=== PATIENT | male | born 1980 | race Caucasian/White ===

== ENCOUNTER 2024-03-05 11:35 | Inpatient (IN) | payer OTHER ==
[2024-03-05] MEDS ORDERED: MAGNESIUM HYDROX 2400MG/30ML ORAL SUSPENSION 30 ML CUP PO PRN (13:35)
[2024-03-05] MEDS ORDERED: IBUPROFEN 600 MG TABLET (FP) PO PRN (13:35)
[2024-03-05] MEDS ORDERED: guaiFENesin 600 MG TABLET.ER (FP) PO PRN (13:35)
[2024-03-05] MEDS ORDERED: NALOXONE HCL 0.4 MG/ML VIAL IM PRN (13:35)
[2024-03-05] MEDS ORDERED: BENZONATATE 200 MG CAPSULE PO PRN (13:35)
[2024-03-05] MEDS ORDERED: ONDANSETRON *ODT* 4 MG TABLET SL PRN (13:35)
[2024-03-05] MEDS ORDERED: POLYETHYLENE GLYCOL (HEALTHYLAX) 3350 17 GM PACKET PO PRN (13:35)
[2024-03-05] MEDS ORDERED: IBUPROFEN 400 MG TABLET (FP) PO PRN (13:35)
[2024-03-05] MEDS ORDERED: BISMUTH SUBSALICYLATE 524 MG/30 ML PO PRN (13:35)
[2024-03-05] MEDS ORDERED: DICYCLOMINE HCL 10 MG CAPSULE PO PRN (13:35)
[2024-03-05] MEDS ORDERED: MAG HYDROX/AL HYDROX/SIMETH 30 ML UNIT-DOSE CUP PO PRN (13:35)
[2024-03-05] MEDS ORDERED: ACETAMINOPHEN 325 MG TABLET (FP) PO PRN (13:35)
[2024-03-05] MEDS ORDERED: LOPERAMIDE HCL 2 MG CAPSULE PO PRN (13:35)
[2024-03-05] MEDS ORDERED: NALOXONE HCL (KLOXXADO) 8 MG SPRAY NS PRN (13:35)
[2024-03-05] MEDS ORDERED: BENZOCAINE/MENTHOL (CHLORASEPTIC ) LOZENGE MM PRN (13:35)
[2024-03-05] MEDS: NICOTINE 14 MG/24 HOURS TOPICAL PATCH TD SCH (15:12)
[2024-03-05] MEDS: PRENATAL VITAMINS W/ FOLIC ACID TABLET (FP) PO SCH (15:15)
[2024-03-05] MEDS: LORazepam 1 MG TABLET PO PRN (15:17)
[2024-03-05] MEDS: GABAPENTIN 400 MG CAPSULE PO SCH (15:17)
[2024-03-05] MEDS: hydrOXYzine PAMOATE 25 MG CAPSULE (FP) PO PRN (15:19)
[2024-03-05] MEDS: LORazepam 2 MG TABLET PO SCH (17:16)
[2024-03-05] MEDS: THIAMINE 100 MG TABLET PO SCH (22:04)
[2024-03-05] MEDS: MELATONIN 5 MG TABLETS PO SCH (22:05)
[2024-03-06] MEDS: HYDROCORTISONE 1% TOPICAL CREAM 30 GM TUBE TP PRN (06:37)
[2024-03-06] MEDS ORDERED: methaDONE HCL 40 MG DISPERSABLE TABLET PO SCH (10:00)
[2024-03-06 11:14] LABS: HEMATOCRIT 39.7 % (35.4-49); MCH 30.7 pg (25.7-33.7); MCHC 32.8 g/dl (32.0-35.9); MEAN CELL VOLUME 93.7 fl (80-96); MEAN PLT VOLUME 12.8 fl (7.5-11.1); PLATELET COUNT 147 10^3/uL (134-434); RBC 4.23 M/mm3 (4.00-5.60); RDW 16.1 % (11.9-15.9)
[2024-03-06 12:15] LABS: CALCIUM 9.3 mg/dL (8.5-10.1)
[2024-03-06 12:17] LABS: ALBUMIN 3.2 g/dl (3.4-5.0); BLOOD UREA NITROGEN 16.9 mg/dL (7-18)
[2024-03-06 12:20] LABS: CREATININE 0.8 mg/dL (0.55-1.3)
[2024-03-06 12:21] LABS: BILIRUBIN,TOTAL 0.9 mg/dL (0.2-1)
[2024-03-07] MEDS: methaDONE HCL 40 MG DISPERSABLE TABLET PO ONE (05:25)
[2024-03-07] MEDS: LORazepam 1 MG TABLET PO SCH (05:25)
[2024-03-07] MEDS: LACTULOSE 20 GM/30 ML UDC (FOR ORAL USE ONLY) PO SCH (13:27)
[2024-03-08] MEDS ORDERED: LORazepam 0.5 MG TABLET PO PRN
[2024-03-08] MEDS: LORazepam 0.5 MG TABLET PO SCH (05:33)
[2024-03-08] MEDS: METHOCARBAMOL 500 MG TABLET PO PRN (10:08)
[2024-03-09] MEDS: LORazepam 0.5 MG TABLET PO ONE (05:38)
[2024-03-09] MEDS ORDERED: methaDONE HCL 10 MG TABLET PO SCH (06:00)
[2024-03-09 09:18] VITALS: PULSE 60
[2024-03-09 12:55] VITALS: BP 111/60; RESP 14; TEMP 97.6
[2024-03-10] MEDS ORDERED: PATIENT'S OWN MEDICATION (NON-FORMULARY) (Clonazepam [Klonopin -] 0.5 MG Tablet) PO SCH (10:00)
== END 2024-03-09 20:34 | disposition other institution (70) | DRG 773 ==
LOC: YASAS 11:35 → Y3N 13:59
PROVIDERS: ADMIT Allergy & Immunology; ATTEND Surgery
PROC: HZ2ZZZZ Detoxification Services for Substance Abuse Treatment (ICD-10-PCS; principal; 2024-03-05)
DX: F10.230 Alcohol dependence with withdrawal, uncomplicated (principal); F11.20 Opioid dependence, uncomplicated; F14.20 Cocaine dependence, uncomplicated; F15.20 Other stimulant dependence, uncomplicated; F17.210 Nicotine dependence, cigarettes, uncomplicated; F32.A Depression, unspecified; F42.9 Obsessive-compulsive disorder, unspecified; G90.9 Disorder of the autonomic nervous system, unspecified; Z87.820 Personal history of traumatic brain injury
CPT/HCPCS: 36415; 80053; 80307; 82140; 85027; 86780; 93005; 93010

== ENCOUNTER 2024-05-06 13:43 | Inpatient (IN) | payer OTHER ==
[2024-05-06 15:44] VITALS: BMI 23.3
[2024-05-06] MEDS ORDERED: DICYCLOMINE HCL 10 MG CAPSULE PO PRN (16:50)
[2024-05-06] MEDS ORDERED: NALOXONE HCL 0.4 MG/ML VIAL IM PRN (16:50)
[2024-05-06] MEDS ORDERED: LOPERAMIDE HCL 2 MG CAPSULE PO PRN (16:50)
[2024-05-06] MEDS ORDERED: BISMUTH SUBSALICYLATE 524 MG/30 ML PO PRN (16:50)
[2024-05-06] MEDS ORDERED: hydrOXYzine PAMOATE 25 MG CAPSULE (FP) PO PRN (16:50)
[2024-05-06] MEDS ORDERED: BENZONATATE 200 MG CAPSULE PO PRN (16:50)
[2024-05-06] MEDS ORDERED: ONDANSETRON *ODT* 4 MG TABLET SL PRN (16:50)
[2024-05-06] MEDS ORDERED: NALOXONE (NARCAN) HCL 4 MG/0.1 ML SPRAY NS PRN (16:50)
[2024-05-06] MEDS ORDERED: POLYETHYLENE GLYCOL (HEALTHYLAX) 3350 17 GM PACKET PO PRN (16:50)
[2024-05-06] MEDS ORDERED: MAGNESIUM HYDROX 2400MG/30ML ORAL SUSPENSION 30 ML CUP PO PRN (16:50)
[2024-05-06] MEDS ORDERED: IBUPROFEN 400 MG TABLET (FP) PO PRN (16:50)
[2024-05-06] MEDS ORDERED: ACETAMINOPHEN 325 MG TABLET (FP) PO PRN (16:50)
[2024-05-06] MEDS ORDERED: guaiFENesin 600 MG TABLET.ER (FP) PO PRN (16:50)
[2024-05-06] MEDS ORDERED: MAG HYDROX/AL HYDROX/SIMETH 30 ML UNIT-DOSE CUP PO PRN (16:50)
[2024-05-06] MEDS ORDERED: IBUPROFEN 600 MG TABLET (FP) PO PRN (16:50)
[2024-05-06] MEDS: LORazepam 1 MG TABLET PO PRN (18:57)
[2024-05-06] MEDS: MELATONIN 5 MG TABLETS PO SCH (22:23)
[2024-05-06] MEDS: THIAMINE 100 MG TABLET PO SCH (22:23)
[2024-05-06] MEDS: LORazepam 2 MG TABLET PO SCH (22:24)
[2024-05-06] MEDS: HYDROCORTISONE 1% TOPICAL CREAM 30 GM TUBE TP SCH (22:25)
[2024-05-07] MEDS: methaDONE HCL 40 MG DISPERSABLE TABLET PO SCH (07:48)
[2024-05-07] MEDS: PRENATAL VITAMINS W/ FOLIC ACID TABLET (FP) PO SCH (10:03)
[2024-05-07] MEDS ORDERED: CHOLECALCIFEROL (VIT D3) 400 UNIT (10 MCG) TABLET PO PRN (10:23)
[2024-05-07] MEDS ORDERED: ALBUTEROL SO4 HFA INHALER IH PRN (10:23)
[2024-05-07] MEDS: SELENIUM SULFIDE 2.5% LOTION 4 OZ. TP SCH (12:07)
[2024-05-07] MEDS: GABAPENTIN 100 MG CAPSULE PO SCH (13:04)
[2024-05-07] MEDS: METHOCARBAMOL 500 MG TABLET PO PRN (17:29)
[2024-05-07] MEDS: traZODone HCL 100 MG TABLET (FP) PO SCH (22:24)
[2024-05-08] MEDS: LORazepam 1 MG TABLET PO SCH (05:30)
[2024-05-08 11:45] LABS: CHLORIDE 102 mmol/L (98-107); POTASSIUM 4.1 mmol/L (3.5-5.1); SODIUM 139 mmol/L (136-145)
[2024-05-08 11:48] LABS: HEMATOCRIT 37.3 % (35.4-49); HEMOGLOBIN 12.4 GM/dL (11.7-16.9); MCHC 33.3 g/dl (32.0-35.9); MEAN CELL VOLUME 96.4 fl (80-96); MEAN PLT VOLUME 12.4 fl (7.5-11.1); PLATELET COUNT 111 10^3/uL (134-434); RBC 3.87 M/mm3 (4.00-5.60); RDW 15.4 % (11.9-15.9); WHITE BLOOD COUNT 4.7 K/mm3 (4.0-10.0)
[2024-05-08 12:00] LABS: ALBUMIN 3.5 g/dl (3.4-5.0); CALCIUM 8.9 mg/dL (8.5-10.1)
[2024-05-08 12:01] LABS: ANION GAP 8 mmol/L (4-13); BLOOD UREA NITROGEN 12.6 mg/dL (7-18); CO2 29 mmol/L (21-32); GLUCOSE,RANDOM 128 mg/dL (74-106)
[2024-05-08 12:04] LABS: CREATININE 0.8 mg/dL (0.55-1.3)
[2024-05-08 12:05] LABS: SGOT/AST 24 U/L (15-37); SGPT/ALT 28 U/L (13-61)
[2024-05-08 12:06] LABS: BILIRUBIN,TOTAL 0.5 mg/dL (0.2-1); TOT PROT 6.9 g/dl (6.4-8.2)
[2024-05-08 12:07] LABS: ALK PHOS 66 U/L (45-117)
[2024-05-08] MEDS: GABAPENTIN 400 MG CAPSULE PO SCH (23:13)
[2024-05-09] MEDS: LORazepam 0.5 MG TABLET PO SCH (05:57)
[2024-05-09] MEDS: BENZOCAINE/MENTHOL (CHLORASEPTIC ) LOZENGE MM PRN (06:00)
[2024-05-09] MEDS: NICOTINE POLACRILEX 4 MG GUM BUC PRN (11:12)
[2024-05-09] MEDS: LORazepam 0.5 MG TABLET PO PRN (12:38)
[2024-05-09 16:57] VITALS: BP 112/73; PULSE 74; RESP 16; TEMP 97.7
[2024-05-10] MEDS ORDERED: LORazepam 0.5 MG TABLET PO ONE (05:00)
== END 2024-05-09 17:11 | disposition other institution (70) | DRG 773 ==
LOC: YASAS 13:43 → Y3N 17:52
PROVIDERS: ADMIT Allergy & Immunology; ATTEND Surgery
PROC: HZ2ZZZZ Detoxification Services for Substance Abuse Treatment (ICD-10-PCS; principal; 2024-05-06)
DX: F11.23 Opioid dependence with withdrawal (principal); F10.230 Alcohol dependence with withdrawal, uncomplicated; F14.20 Cocaine dependence, uncomplicated; F17.210 Nicotine dependence, cigarettes, uncomplicated; F31.9 Bipolar disorder, unspecified; F41.9 Anxiety disorder, unspecified; J45.909 Unspecified asthma, uncomplicated; B18.2 Chronic viral hepatitis C; Z87.820 Personal history of traumatic brain injury; Z56.0 Unemployment, unspecified; Z59.10 Inadequate housing, unspecified
CPT/HCPCS: 36415; 80053; 80307; 82140; 85027; 86780; 87811; 93005; 93010

== ENCOUNTER 2024-05-09 17:20 | Inpatient (IN) | payer OTHER ==
[2024-05-09] MEDS ORDERED: BENZONATATE 200 MG CAPSULE PO PRN (17:47)
[2024-05-09] MEDS ORDERED: guaiFENesin 600 MG TABLET.ER (FP) PO PRN (17:47)
[2024-05-09] MEDS ORDERED: NICOTINE POLACRILEX 2 MG LOZENGE BC PRN (17:47)
[2024-05-09] MEDS ORDERED: IBUPROFEN 400 MG TABLET (FP) PO PRN (17:47)
[2024-05-09] MEDS ORDERED: NALOXONE (NARCAN) HCL 4 MG/0.1 ML SPRAY NS PRN (17:47)
[2024-05-09] MEDS ORDERED: POLYETHYLENE GLYCOL (HEALTHYLAX) 3350 17 GM PACKET PO PRN (17:47)
[2024-05-09] MEDS ORDERED: ACETAMINOPHEN 325 MG TABLET (FP) PO PRN (17:47)
[2024-05-09] MEDS ORDERED: MAGNESIUM HYDROX 2400MG/30ML ORAL SUSPENSION 30 ML CUP PO PRN (17:47)
[2024-05-09] MEDS ORDERED: LOPERAMIDE HCL 2 MG CAPSULE PO PRN (17:47)
[2024-05-09] MEDS ORDERED: MAG HYDROX/AL HYDROX/SIMETH 30 ML UNIT-DOSE CUP PO PRN (17:47)
[2024-05-09] MEDS ORDERED: NALOXONE HCL 0.4 MG/ML VIAL IVPUSH PRN (17:47)
[2024-05-09] MEDS ORDERED: ALBUTEROL SO4 HFA INHALER IH PRN (17:49)
[2024-05-09] MEDS: THIAMINE 100 MG TABLET PO SCH (22:41)
[2024-05-09] MEDS: MELATONIN 5 MG TABLETS PO SCH (22:41)
[2024-05-09] MEDS: GABAPENTIN 400 MG CAPSULE PO SCH (22:41)
[2024-05-09] MEDS: HYDROCORTISONE 1% TOPICAL CREAM 30 GM TUBE TP SCH (22:41)
[2024-05-10] MEDS: BENZOCAINE/MENTHOL (CHLORASEPTIC ) LOZENGE MM PRN (03:36)
[2024-05-10] MEDS: P-EPHED 60MG/TRIPROLIDI 2.5MG TABLET PO PRN (03:42)
[2024-05-10] MEDS: methaDONE HCL 40 MG DISPERSABLE TABLET PO SCH (05:44)
[2024-05-10] MEDS ORDERED: PALIPERIDONE 6 MG PO SCH (10:00)
[2024-05-10] MEDS: PRENATAL VITAMINS W/ FOLIC ACID TABLET (FP) PO SCH (10:07)
[2024-05-10] MEDS: PALIPERIDONE 6 MG PO SCH (11:00)
[2024-05-10] MEDS: IBUPROFEN 600 MG TABLET (FP) PO PRN (15:47)
[2024-05-10] MEDS: METHOCARBAMOL 500 MG TABLET PO PRN (15:47)
[2024-05-10] MEDS: traZODone HCL 100 MG TABLET (FP) PO SCH (21:41)
[2024-05-11] MEDS: CHOLECALCIFEROL (VIT D3) 400 UNIT (10 MCG) TABLET PO PRN (10:08)
[2024-05-13] MEDS: NICOTINE POLACRILEX 2 MG GUM BUC PRN (11:00)
[2024-05-13] MEDS ORDERED: GABAPENTIN 400 MG CAPSULE PO SCH (20:52)
[2024-05-13] MEDS: GABAPENTIN 400 MG, GABAPENTIN 100 MG PO SCH (21:24)
[2024-05-14] MEDS: SELENIUM SULFIDE 2.5% LOTION 4 OZ. TP SCH (12:22)
[2024-05-15 07:07] VITALS: BP 121/79; PULSE 56; RESP 16; TEMP 97.1
== END 2024-05-15 07:45 | disposition home or self-care (01) | DRG 772 ==
LOC: YASAS 17:20 → Y5N 17:22
PROVIDERS: ADMIT Allergy & Immunology; ATTEND Psychiatry & Neurology Pain Medicine
PROC: HZ42ZZZ Group Counseling for Substance Abuse Treatment, Cognitive-Behavioral (ICD-10-PCS; principal; 2024-05-09)
DX: F10.20 Alcohol dependence, uncomplicated (principal); F11.20 Opioid dependence, uncomplicated; F13.20 Sedative, hypnotic or anxiolytic dependence, uncomplicated; F14.20 Cocaine dependence, uncomplicated; F17.210 Nicotine dependence, cigarettes, uncomplicated; F42.9 Obsessive-compulsive disorder, unspecified; F32.9 Major depressive disorder, single episode, unspecified; F90.9 Attention-deficit hyperactivity disorder, unspecified type; G62.9 Polyneuropathy, unspecified; J45.909 Unspecified asthma, uncomplicated; B18.2 Chronic viral hepatitis C; Z87.820 Personal history of traumatic brain injury
CPT/HCPCS: 82962

== ENCOUNTER 2024-07-25 11:18 | Inpatient (IN) | payer OTHER ==
[2024-07-25 11:54] VITALS: BMI 21.7
[2024-07-25] MEDS ORDERED: ONDANSETRON *ODT* 4 MG TABLET SL PRN (14:12)
[2024-07-25] MEDS ORDERED: guaiFENesin 600 MG TABLET.ER (FP) PO PRN (14:12)
[2024-07-25] MEDS ORDERED: BISMUTH SUBSALICYLATE 524 MG/30 ML PO PRN (14:12)
[2024-07-25] MEDS ORDERED: METHOCARBAMOL 500 MG TABLET PO PRN (14:12)
[2024-07-25] MEDS ORDERED: DICYCLOMINE HCL 10 MG CAPSULE PO PRN (14:12)
[2024-07-25] MEDS ORDERED: ACETAMINOPHEN 325 MG TABLET (FP) PO PRN (14:12)
[2024-07-25] MEDS ORDERED: BENZOCAINE/MENTHOL (CHLORASEPTIC ) LOZENGE MM PRN (14:12)
[2024-07-25] MEDS ORDERED: MAG HYDROX/AL HYDROX/SIMETH 30 ML UNIT-DOSE CUP PO PRN (14:12)
[2024-07-25] MEDS ORDERED: MAGNESIUM HYDROX 2400MG/30ML ORAL SUSPENSION 30 ML CUP PO PRN (14:12)
[2024-07-25] MEDS ORDERED: NALOXONE HCL 0.4 MG/ML VIAL IM PRN (14:12)
[2024-07-25] MEDS ORDERED: BENZONATATE 200 MG CAPSULE PO PRN (14:12)
[2024-07-25] MEDS ORDERED: LOPERAMIDE HCL 2 MG CAPSULE PO PRN (14:12)
[2024-07-25] MEDS ORDERED: NALOXONE (NARCAN) HCL 4 MG/0.1 ML SPRAY NS PRN (14:12)
[2024-07-25] MEDS ORDERED: POLYETHYLENE GLYCOL (HEALTHYLAX) 3350 17 GM PACKET PO PRN (14:12)
[2024-07-25] MEDS ORDERED: IBUPROFEN 600 MG TABLET (FP) PO PRN (14:12)
[2024-07-25] MEDS ORDERED: ALBUTEROL SO4 HFA INHALER IH PRN (14:15)
[2024-07-25] MEDS ORDERED: CHOLECALCIFEROL (VIT D3) 400 UNIT (10 MCG) TABLET PO PRN (14:15)
[2024-07-25] MEDS: chlordiazePOXIDE HCL 25 MG CAPSULE PO ONE (14:55)
[2024-07-25] MEDS ORDERED: chlordiazePOXIDE HCL 25 MG CAPSULE ONE (14:55)
[2024-07-25] MEDS: PRENATAL VITAMINS W/ FOLIC ACID TABLET (FP) PO SCH (15:01)
[2024-07-25] MEDS: NICOTINE 7 MG/24 HOURS TOPICAL PATCH TD SCH (15:01)
[2024-07-25] MEDS ORDERED: diphenhydrAMINE HCL 25 MG CAPSULE (FP) PO ONE (15:05)
[2024-07-25] MEDS: diphenhydrAMINE HCL 25 MG CAPSULE (FP) PO PRN (15:06)
[2024-07-25] MEDS: chlordiazePOXIDE HCL 25 MG CAPSULE PO SCH (17:37)
[2024-07-25] MEDS: THIAMINE 100 MG TABLET PO SCH (22:25)
[2024-07-25] MEDS: BACITRACIN 0.9 GM PACKET TP SCH (22:32)
[2024-07-25] MEDS: IBUPROFEN 400 MG TABLET (FP) PO PRN (22:32)
[2024-07-25] MEDS: HYDROCORTISONE 1% TOPICAL CREAM 30 GM TUBE TP SCH (22:33)
[2024-07-25] MEDS: MELATONIN 5 MG TABLETS PO SCH (22:33)
[2024-07-26] MEDS: traZODone HCL 100 MG TABLET (FP) PO SCH (00:17)
[2024-07-26] MEDS ORDERED: methaDONE HCL 10 MG TABLET PO ONE (09:02)
[2024-07-26] MEDS: methaDONE HCL 40 MG DISPERSABLE TABLET PO ONE (09:56)
[2024-07-26] MEDS ORDERED: PALIPERIDONE 6 MG PO SCH (10:00)
[2024-07-26] MEDS: SELENIUM SULFIDE 2.5% LOTION 4 OZ. TP SCH (10:23)
[2024-07-26] MEDS: TOLNAFTATE 1% CREAM 15 GM TUBE TP SCH (14:46)
[2024-07-27] MEDS: methaDONE HCL 40 MG DISPERSABLE TABLET PO SCH (05:54)
[2024-07-27] MEDS: chlordiazePOXIDE HCL 25 MG CAPSULE PO SCH (05:54)
[2024-07-27] MEDS ORDERED: methaDONE HCL 10 MG TABLET PO SCH (06:00)
[2024-07-27] MEDS: chlordiazePOXIDE HCL 25 MG CAPSULE PO PRN (12:59)
[2024-07-28] MEDS ORDERED: chlordiazePOXIDE HCL 10 MG CAPSULE PO PRN
[2024-07-28] MEDS: chlordiazePOXIDE HCL 10 MG CAPSULE PO SCH (05:58)
[2024-07-28 10:00] LABS: BASO % 0.4 % (0-2.0); EOS % 5.9 % (0-4.5); HEMOGLOBIN 12.9 GM/dL (11.7-16.9); LYMPH % 43.8 % (8-40); MCH 31.4 pg (25.7-33.7); MCHC 33.9 g/dl (32.0-35.9); MEAN CELL VOLUME 92.5 fl (80-96); MEAN PLT VOLUME 10.4 fl (7.5-11.1); MONO % 7.9 % (3.8-10.2); PLATELET COUNT 124 10^3/uL (134-434); RBC 4.11 M/mm3 (4.00-5.60); RDW 14.1 % (11.9-15.9); WHITE BLOOD COUNT 4.6 K/mm3 (4.0-10.0)
[2024-07-28 10:06] LABS: POTASSIUM 4.1 mmol/L (3.5-5.1)
[2024-07-28 10:08] LABS: ALBUMIN 3.2 g/dl (3.4-5.0); CALCIUM 8.9 mg/dL (8.5-10.1)
[2024-07-28 10:12] LABS: CREATININE 0.8 mg/dL (0.55-1.3)
[2024-07-28 10:13] LABS: BILIRUBIN,TOTAL 0.5 mg/dL (0.2-1); TOT PROT 6.3 g/dl (6.4-8.2)
[2024-07-29] MEDS: chlordiazePOXIDE HCL 10 MG CAPSULE PO SCH (06:00)
[2024-07-29] MEDS: hydrOXYzine PAMOATE 25 MG CAPSULE (FP) PO PRN (19:25)
[2024-07-30] MEDS: chlordiazePOXIDE HCL 10 MG CAPSULE PO ONE (05:57)
[2024-07-30 08:47] VITALS: BP 95/63; PULSE 62; RESP 18; TEMP 97.8
== END 2024-07-30 09:30 | disposition other institution (70) | DRG 773 ==
LOC: YASAS 11:18 → Y6N 15:19
PROVIDERS: ADMIT Allergy & Immunology; ATTEND Surgery
PROC: HZ2ZZZZ Detoxification Services for Substance Abuse Treatment (ICD-10-PCS; principal; 2024-07-25)
DX: F10.230 Alcohol dependence with withdrawal, uncomplicated (principal); F14.20 Cocaine dependence, uncomplicated; F11.20 Opioid dependence, uncomplicated; F16.20 Hallucinogen dependence, uncomplicated; F17.210 Nicotine dependence, cigarettes, uncomplicated; F31.9 Bipolar disorder, unspecified; B18.2 Chronic viral hepatitis C; J45.909 Unspecified asthma, uncomplicated; L21.9 Seborrheic dermatitis, unspecified
CPT/HCPCS: 36415; 80053; 80305; 85025; 86780; 93005; 93010

== ENCOUNTER 2025-02-24 10:29 | Inpatient (IN) | payer OTHER ==
[2025-02-24 10:54] VITALS: BMI 19.2
[2025-02-24] MEDS ORDERED: guaiFENesin 600 MG TABLET.ER (FP) PO PRN (12:08)
[2025-02-24] MEDS ORDERED: DICYCLOMINE HCL 10 MG CAPSULE PO PRN (12:08)
[2025-02-24] MEDS ORDERED: BISMUTH SUBSALICYLATE 262 MG/15 ML BTL PO PRN (12:08)
[2025-02-24] MEDS ORDERED: POLYETHYLENE GLYCOL (HEALTHYLAX) 3350 17 GM PACKET PO PRN (12:08)
[2025-02-24] MEDS ORDERED: IBUPROFEN 400 MG TABLET (FP) PO PRN (12:08)
[2025-02-24] MEDS ORDERED: BENZONATATE 200 MG CAPSULE PO PRN (12:08)
[2025-02-24] MEDS ORDERED: ACETAMINOPHEN 325 MG TABLET (FP) PO PRN (12:08)
[2025-02-24] MEDS ORDERED: ONDANSETRON *ODT* 4 MG TABLET SL PRN (12:08)
[2025-02-24] MEDS ORDERED: IBUPROFEN 600 MG TABLET (FP) PO PRN (12:08)
[2025-02-24] MEDS ORDERED: NALOXONE (NARCAN) HCL 4 MG/0.1 ML SPRAY NS PRN (12:08)
[2025-02-24] MEDS ORDERED: METHOCARBAMOL 500 MG TABLET PO PRN (12:08)
[2025-02-24] MEDS ORDERED: BENZOCAINE/MENTHOL (CHLORASEPTIC ) LOZENGE MM PRN (12:08)
[2025-02-24] MEDS ORDERED: MAG HYDROX/AL HYDROX/SIMETH 30 ML UNIT-DOSE CUP PO PRN (12:08)
[2025-02-24] MEDS ORDERED: MAGNESIUM HYDROX 2400MG/30ML ORAL SUSPENSION 30 ML CUP PO PRN (12:08)
[2025-02-24] MEDS ORDERED: LOPERAMIDE HCL 2 MG CAPSULE PO PRN (12:08)
[2025-02-24] MEDS ORDERED: hydrOXYzine PAMOATE 25 MG CAPSULE (FP) PO PRN (12:08)
[2025-02-24] MEDS ORDERED: ALBUTEROL SO4 HFA INHALER IH PRN (13:15)
[2025-02-24] MEDS: diazePAM 5 MG TABLET PO PRN (13:34)
[2025-02-24] MEDS: diazePAM 5 MG TABLET PO SCH (17:10)
[2025-02-24] MEDS: HYDROCORTISONE 1% TOPICAL CREAM 30 GM TUBE TP SCH (21:35)
[2025-02-24] MEDS: MELATONIN 5 MG TABLETS PO SCH (21:35)
[2025-02-24] MEDS: THIAMINE 100 MG TABLET PO SCH (21:35)
[2025-02-25] MEDS ORDERED: methaDONE HCL 10 MG TABLET PO SCH (06:00)
[2025-02-25] MEDS: NICOTINE POLACRILEX 2 MG GUM BUC PRN (06:22)
[2025-02-25 09:04] VITALS: BP 111/84; PULSE 68; RESP 17; TEMP 97.6
[2025-02-25] MEDS: PRENATAL VITAMINS W/ FOLIC ACID TABLET (FP) PO SCH (10:09)
[2025-02-25] MEDS: SELENIUM SULFIDE 2.5% LOTION 4 OZ. TP SCH (11:11)
[2025-02-25 11:36] LABS: HEMATOCRIT 43.8 % (40.1-51.0); HEMOGLOBIN 13.7 g/dL (13.7-17.5); MCHC 31.3 g/dl (32.3-36.5); MEAN CELL VOLUME 96.7 fl (79.0-92.2); MEAN PLT VOLUME 14.3 fl (9.4-12.4); PLATELET COUNT 146 x10^3/uL (163-337); RDW 14.5 % (12.1-15.9)
[2025-02-25 11:39] LABS: POTASSIUM 4.7 mmol/L (3.5-5.1)
[2025-02-25 11:52] LABS: BLOOD UREA NITROGEN 20.1 mg/dL (7-18); CALCIUM 9.5 mg/dL (8.5-10.1)
[2025-02-25 11:55] LABS: CREATININE 0.8 mg/dL (0.55-1.3)
[2025-02-25 11:56] LABS: BILIRUBIN,TOTAL 0.8 mg/dL (0.2-1)
[2025-02-25 11:57] LABS: TOT PROT 7.1 g/dl (6.4-8.2)
[2025-02-26] MEDS ORDERED: diazePAM 5 MG TABLET PO SCH (06:00)
[2025-02-27] MEDS ORDERED: diazePAM 5 MG TABLET PO SCH (06:00)
[2025-02-28] MEDS ORDERED: diazePAM 5 MG TABLET PO ONE (06:00)
== END 2025-02-25 13:17 | disposition left against medical advice (07) | DRG 770 ==
LOC: YASAS 10:29 → Y6N 12:46
PROVIDERS: ADMIT Allergy & Immunology; ATTEND Allergy & Immunology
PROC: HZ2ZZZZ Detoxification Services for Substance Abuse Treatment (ICD-10-PCS; principal; 2025-02-24)
DX: F10.230 Alcohol dependence with withdrawal, uncomplicated (principal); F11.20 Opioid dependence, uncomplicated; F14.20 Cocaine dependence, uncomplicated; F12.20 Cannabis dependence, uncomplicated; F17.210 Nicotine dependence, cigarettes, uncomplicated; F19.282 Other psychoactive substance dependence with psychoactive substance-induced sleep disorder; F19.24 Other psychoactive substance dependence with psychoactive substance-induced mood disorder; F31.9 Bipolar disorder, unspecified; B18.2 Chronic viral hepatitis C; J45.20 Mild intermittent asthma, uncomplicated; Z86.73 Personal history of transient ischemic attack (TIA), and cerebral infarction without residual deficits; Z87.820 Personal history of traumatic brain injury
CPT/HCPCS: 36415; 80053; 80305; 80307; 85027; 86780; 93005; 93010